=== PATIENT | male | born 1955 | race Caucasian/White ===

== ENCOUNTER 2018-03-15 11:46 | Day surgery (SDC) | payer OTHER | END 2018-03-15 15:52 | disposition home or self-care (01) | LOC: GIL 11:46 | DX: K92.1 Melena (principal); D12.3 Benign neoplasm of transverse colon; K57.90 Diverticulosis of intestine, part unspecified, without perforation or abscess without bleeding; K64.8 Other hemorrhoids | CPT/HCPCS: 45385; 88305 ==